=== PATIENT | female | born 1960 | race Caucasian/White ===

== ENCOUNTER 2022-05-04 11:11 | Emergency (ER) | payer MEDICARE, MEDICAID ==
[2022-05-04] MEDS ORDERED: Sodium Chloride 0.9% 10 ML Syringe FLUSH PRN ×2 (12:22→13:47)
[2022-05-04] MEDS ORDERED: Sodium Chloride 0.9% 1,000 ML IV ONE (12:22)
[2022-05-04] MEDS ORDERED: Iopamidol 612 MG/ML 100 ML Bottle IVPUSH ONE (13:47)
[2022-05-04] MEDS ORDERED: Ketorolac 30 MG/ML SDV IVPUSH ONE (14:35)
[2022-05-04 15:43] VITALS: BP 101/79; PULSE 86
[2022-05-04] MEDS ORDERED: Magnesium Citrate Solution 296 ML Bottle PO ONE (19:10)
== END 2022-05-04 19:42 | disposition home or self-care (01) ==
LOC: JD.ED 11:11
DX: K59.00 Constipation, unspecified (principal); J44.9 Chronic obstructive pulmonary disease, unspecified; E11.9 Type 2 diabetes mellitus without complications; E03.9 Hypothyroidism, unspecified; K21.9 Gastro-esophageal reflux disease without esophagitis; Z87.891 Personal history of nicotine dependence; Z88.1 Allergy status to other antibiotic agents; Z88.0 Allergy status to penicillin; Z79.899 Other long term (current) drug therapy
CPT/HCPCS: 36415; 74177; 80053; 81003; 83690; 83735; 85025; 86140; 96374; 99284; J1885; J3490; J7030; Q9967

== ENCOUNTER 2022-06-21 22:32 | Inpatient (IN) | payer MEDICARE, MEDICAID ==
[2022-06-21] MEDS ORDERED: Sodium Chloride 0.9% 1,000 ML ONE (23:47)
[2022-06-21] MEDS ORDERED: Sodium Chloride 0.9% 500 ML IV ONE (23:55)
[2022-06-21] MEDS ORDERED: Sodium Chloride 0.9% 10 ML Syringe FLUSH PRN (23:56)
[2022-06-22] MEDS ORDERED: Sodium Chloride 0.9% 1,000 ML IV ONE (00:45)
[2022-06-22] MEDS ORDERED: Piperacillin/Tazobactam 4.5 GM in Sodium Chloride 0.9% 100 ML IV STA (01:01)
[2022-06-22] MEDS ORDERED: Iopamidol 755 Mg/ML 100 ML Bottle IVPUSH ONE (01:55)
[2022-06-22] MEDS ORDERED: Sodium Chloride 0.9% 10 ML Syringe FLUSH ONE (01:55)
[2022-06-22] MEDS ORDERED: Sodium Chloride 0.9% 100 ML IV SCH (02:00)
[2022-06-22] MEDS ORDERED: REMDESIVIR 200 MG in Sodium Chloride 0.9% 250 ML IV ONE (02:12)
[2022-06-22] MEDS ORDERED: REMDESIVIR 100 MG ONE ×2 (02:59→03:01)
[2022-06-22] MEDS ORDERED: Sodium Chloride 0.9% 250 ML ONE (03:06)
[2022-06-22] MEDS ORDERED: Sodium Chloride 0.9% 1,000 ML IV SCH (03:45)
[2022-06-22] MEDS ORDERED: Albuterol/Ipratropium 3.0-0.5 MG/3 ML Neb Soln NEB PRN (12:20)
[2022-06-22] MEDS ORDERED: Ondansetron 4 MG/2 ML SDV IV PRN (12:20)
[2022-06-22] MEDS ORDERED: Albuterol 0.083% 2.5 MG/3 ML Neb Soln NEB PRN (12:20)
[2022-06-22] MEDS ORDERED: Docusate Sodium 100 MG Cap PO PRN (12:20)
[2022-06-22 13:39] LABS: HEMOGLOBIN A1C 6.3 %
[2022-06-22] MEDS: Gabapentin 600 MG Tab PO SCH ×2 (14:15→20:26)
[2022-06-22] MEDS: Levothyroxine 88 MCG Tab PO SCH (14:16)
[2022-06-22] MEDS: Gabapentin 100 MG Cap PO SCH ×2 (14:16→20:25)
[2022-06-22] MEDS: Oxybutynin 5 MG Tab PO SCH ×2 (14:16→20:26)
[2022-06-22] MEDS: Enoxaparin 40 MG/0.4 ML Syringe SUBCUT SCH (14:16)
[2022-06-22] MEDS: oxyCODONE 5 MG Tab PO PRN (14:17)
[2022-06-22] MEDS: Magnesium Oxide 400 MG Tab PO SCH (17:25)
[2022-06-22] MEDS ORDERED: Insulin Lispro 100 Unit/ML 3 ML KwikPen SUBCUT SCH (17:30)
[2022-06-22] MEDS: QUEtiapine 100 MG Tab PO SCH (20:24)
[2022-06-22] MEDS: cloZAPine 100 MG Tab PO SCH (20:24)
[2022-06-22] MEDS: Melatonin 3 MG Tab PO SCH (20:25)
[2022-06-22] MEDS: Famotidine 20 MG Tab PO SCH (20:25)
[2022-06-22] MEDS: Memantine 10 MG Tab PO SCH (20:25)
[2022-06-22] MEDS: Donepezil 10 MG Tab PO SCH (20:26)
[2022-06-22] MEDS: LITHIUM CARBONATE 150 MG PO SCH (20:53)
[2022-06-22] MEDS ORDERED: traZODone 50 MG Tab PO SCH (21:00)
[2022-06-23] MEDS: REMDESIVIR 100 MG in Sodium Chloride 0.9% 100 ML IV SCH (02:20)
[2022-06-23] MEDS: Pantoprazole 40 MG Tab.CR PO SCH (05:06)
[2022-06-23] MEDS: Levothyroxine 88 MCG Tab PO SCH (05:07)
[2022-06-23] MEDS: Donepezil 10 MG Tab PO SCH ×2 (08:52→21:00)
[2022-06-23] MEDS: Celecoxib 100 MG Cap PO SCH (08:52)
[2022-06-23] MEDS: Famotidine 20 MG Tab PO SCH (08:52)
[2022-06-23] MEDS: OLANZapine 5 MG Tab PO SCH (08:52)
[2022-06-23] MEDS: Cholecalciferol (Vitamin D3) 25 MCG Tab PO SCH (08:52)
[2022-06-23] MEDS: FLUoxetine 20 MG Cap PO SCH (08:52)
[2022-06-23] MEDS: Gabapentin 100 MG Cap PO SCH ×3 (08:52→21:01)
[2022-06-23] MEDS: Memantine 10 MG Tab PO SCH ×2 (08:53→21:01)
[2022-06-23] MEDS: Enoxaparin 40 MG/0.4 ML Syringe SUBCUT SCH (08:53)
[2022-06-23] MEDS: Gabapentin 600 MG Tab PO SCH (08:53)
[2022-06-23] MEDS: Polyethylene Glycol 3350 Powder 17 GM Packet PO SCH (08:53)
[2022-06-23] MEDS: Oxybutynin 5 MG Tab PO SCH ×3 (08:53→21:00)
[2022-06-23] MEDS: LITHIUM CARBONATE 150 MG PO SCH ×2 (09:09→23:35)
[2022-06-23] MEDS: LINACLOTIDE 290 MCG PO SCH (09:09)
[2022-06-23] MEDS: BUPROPION 75 MG PO SCH (09:10)
[2022-06-23] MEDS: Magnesium Oxide 400 MG Tab PO SCH ×2 (11:38→18:25)
[2022-06-23] MEDS ORDERED: REMDESIVIR 100 MG in Sodium Chloride 0.9% 100 ML IV SCH (12:30)
[2022-06-23] MEDS: Acetaminophen 325 MG Tab PO PRN ×2 (13:48→20:59)
[2022-06-23] MEDS: Benzocaine/Cetylpyridinium/Menthol Lozenge MUCMEM PRN ×2 (18:42→21:17)
[2022-06-23] MEDS: Melatonin 3 MG Tab PO SCH (20:59)
[2022-06-23] MEDS: cloZAPine 100 MG Tab PO SCH (20:59)
[2022-06-23] MEDS: QUEtiapine 100 MG Tab PO SCH (21:00)
[2022-06-24] MEDS: REMDESIVIR 100 MG in Sodium Chloride 0.9% 100 ML IV SCH (01:17)
[2022-06-24] MEDS: Levothyroxine 88 MCG Tab PO SCH (05:33)
[2022-06-24] MEDS: Pantoprazole 40 MG Tab.CR PO SCH (05:33)
[2022-06-24] MEDS: Celecoxib 100 MG Cap PO SCH (06:54)
[2022-06-24] MEDS: oxyCODONE 5 MG Tab PO PRN (07:51)
[2022-06-24] MEDS: LINACLOTIDE 290 MCG PO SCH (08:52)
[2022-06-24] MEDS: LITHIUM CARBONATE 150 MG PO SCH ×2 (08:53→21:01)
[2022-06-24] MEDS: BUPROPION 75 MG PO SCH (08:53)
[2022-06-24] MEDS: Polyethylene Glycol 3350 Powder 17 GM Packet PO SCH (08:54)
[2022-06-24] MEDS: Memantine 10 MG Tab PO SCH ×2 (08:56→20:46)
[2022-06-24] MEDS: FLUoxetine 20 MG Cap PO SCH (08:56)
[2022-06-24] MEDS: Donepezil 10 MG Tab PO SCH ×2 (08:56→20:47)
[2022-06-24] MEDS: Cholecalciferol (Vitamin D3) 25 MCG Tab PO SCH (08:58)
[2022-06-24] MEDS: Oxybutynin 5 MG Tab PO SCH ×3 (08:58→20:48)
[2022-06-24] MEDS: Gabapentin 100 MG Cap PO SCH ×3 (08:59→20:47)
[2022-06-24] MEDS: OLANZapine 5 MG Tab PO SCH (08:59)
[2022-06-24] MEDS: Enoxaparin 40 MG/0.4 ML Syringe SUBCUT SCH (09:00)
[2022-06-24] MEDS: guaiFENesin 600 MG Tab.ER PO SCH ×2 (11:55→20:47)
[2022-06-24] MEDS: Magnesium Oxide 400 MG Tab PO SCH ×2 (11:55→18:17)
[2022-06-24] MEDS: Acetaminophen 325 MG Tab PO PRN (14:06)
[2022-06-24] MEDS: Melatonin 3 MG Tab PO SCH (20:48)
[2022-06-24] MEDS: cloZAPine 100 MG Tab PO SCH (20:48)
[2022-06-24] MEDS: QUEtiapine 100 MG Tab PO SCH (20:48)
[2022-06-25] MEDS: REMDESIVIR 100 MG in Sodium Chloride 0.9% 100 ML IV SCH (02:13)
[2022-06-25] MEDS: Levothyroxine 88 MCG Tab PO SCH (06:03)
[2022-06-25] MEDS: Pantoprazole 40 MG Tab.CR PO SCH (06:03)
[2022-06-25] MEDS: Celecoxib 100 MG Cap PO SCH (06:07)
[2022-06-25] MEDS: Acetaminophen 325 MG Tab PO PRN ×2 (06:13→18:44)
[2022-06-25] MEDS: Donepezil 10 MG Tab PO SCH ×2 (09:32→20:22)
[2022-06-25] MEDS: FLUoxetine 20 MG Cap PO SCH (09:32)
[2022-06-25] MEDS: guaiFENesin 600 MG Tab.ER PO SCH ×2 (09:32→20:21)
[2022-06-25] MEDS: OLANZapine 5 MG Tab PO SCH (09:33)
[2022-06-25] MEDS: Memantine 10 MG Tab PO SCH ×2 (09:33→20:23)
[2022-06-25] MEDS: Cholecalciferol (Vitamin D3) 25 MCG Tab PO SCH (09:34)
[2022-06-25] MEDS: Enoxaparin 40 MG/0.4 ML Syringe SUBCUT SCH (09:34)
[2022-06-25] MEDS: Gabapentin 100 MG Cap PO SCH ×3 (09:34→20:54)
[2022-06-25] MEDS: Polyethylene Glycol 3350 Powder 17 GM Packet PO SCH (09:34)
[2022-06-25] MEDS: LITHIUM CARBONATE 150 MG PO SCH ×2 (09:35→22:32)
[2022-06-25] MEDS: Oxybutynin 5 MG Tab PO SCH ×3 (09:35→20:23)
[2022-06-25] MEDS: BUPROPION 75 MG PO SCH (09:35)
[2022-06-25] MEDS: LINACLOTIDE 290 MCG PO SCH (09:35)
[2022-06-25] MEDS: Magnesium Oxide 400 MG Tab PO SCH ×2 (12:19→17:25)
[2022-06-25] MEDS: oxyCODONE 5 MG Tab PO PRN (20:21)
[2022-06-25] MEDS: QUEtiapine 100 MG Tab PO SCH (20:22)
[2022-06-25] MEDS: cloZAPine 100 MG Tab PO SCH (20:23)
[2022-06-25] MEDS: Melatonin 3 MG Tab PO SCH (20:23)
[2022-06-26] MEDS: REMDESIVIR 100 MG in Sodium Chloride 0.9% 100 ML IV SCH (03:52)
[2022-06-26] MEDS: Acetaminophen 325 MG Tab PO PRN ×3 (04:08→18:44)
[2022-06-26] MEDS: Pantoprazole 40 MG Tab.CR PO SCH (06:57)
[2022-06-26] MEDS: Levothyroxine 88 MCG Tab PO SCH (06:57)
[2022-06-26] MEDS: Celecoxib 100 MG Cap PO SCH (06:58)
[2022-06-26] MEDS: LINACLOTIDE 290 MCG PO SCH (08:39)
[2022-06-26] MEDS: BUPROPION 75 MG PO SCH (08:40)
[2022-06-26] MEDS: LITHIUM CARBONATE 150 MG PO SCH ×2 (08:40→23:19)
[2022-06-26] MEDS: Polyethylene Glycol 3350 Powder 17 GM Packet PO SCH (08:41)
[2022-06-26] MEDS: guaiFENesin 600 MG Tab.ER PO SCH ×2 (08:42→20:14)
[2022-06-26] MEDS: Memantine 10 MG Tab PO SCH ×2 (08:42→20:15)
[2022-06-26] MEDS: Enoxaparin 40 MG/0.4 ML Syringe SUBCUT SCH (08:44)
[2022-06-26] MEDS: Donepezil 10 MG Tab PO SCH ×2 (08:44→20:14)
[2022-06-26] MEDS: Gabapentin 100 MG Cap PO SCH ×3 (08:45→20:15)
[2022-06-26] MEDS: Oxybutynin 5 MG Tab PO SCH ×3 (08:45→20:15)
[2022-06-26] MEDS: Cholecalciferol (Vitamin D3) 25 MCG Tab PO SCH (08:45)
[2022-06-26] MEDS: FLUoxetine 20 MG Cap PO SCH (08:45)
[2022-06-26] MEDS: OLANZapine 5 MG Tab PO SCH (08:45)
[2022-06-26] MEDS: Benzocaine/Cetylpyridinium/Menthol Lozenge MUCMEM PRN ×2 (10:45→15:37)
[2022-06-26] MEDS: Magnesium Oxide 400 MG Tab PO SCH ×2 (10:45→18:09)
[2022-06-26] MEDS: cloZAPine 100 MG Tab PO SCH (20:13)
[2022-06-26] MEDS: Melatonin 3 MG Tab PO SCH (20:14)
[2022-06-26] MEDS: QUEtiapine 100 MG Tab PO SCH (20:14)
[2022-06-27] MEDS: Levothyroxine 88 MCG Tab PO SCH (05:52)
[2022-06-27] MEDS: Pantoprazole 40 MG Tab.CR PO SCH (05:52)
[2022-06-27] MEDS: Celecoxib 100 MG Cap PO SCH (07:53)
[2022-06-27] MEDS: Enoxaparin 40 MG/0.4 ML Syringe SUBCUT SCH (08:48)
[2022-06-27] MEDS: Donepezil 10 MG Tab PO SCH ×2 (08:49→20:41)
[2022-06-27] MEDS: Memantine 10 MG Tab PO SCH ×2 (08:50→20:45)
[2022-06-27] MEDS: Cholecalciferol (Vitamin D3) 25 MCG Tab PO SCH (08:51)
[2022-06-27] MEDS: Oxybutynin 5 MG Tab PO SCH ×3 (08:51→20:45)
[2022-06-27] MEDS: OLANZapine 5 MG Tab PO SCH (08:52)
[2022-06-27] MEDS: Gabapentin 100 MG Cap PO SCH ×3 (08:52→20:42)
[2022-06-27] MEDS: FLUoxetine 20 MG Cap PO SCH (08:52)
[2022-06-27] MEDS: guaiFENesin 600 MG Tab.ER PO SCH ×2 (08:52→20:42)
[2022-06-27] MEDS: Polyethylene Glycol 3350 Powder 17 GM Packet PO SCH (08:53)
[2022-06-27] MEDS: LITHIUM CARBONATE 150 MG PO SCH (09:00)
[2022-06-27] MEDS: BUPROPION 75 MG PO SCH (09:00)
[2022-06-27] MEDS: LINACLOTIDE 290 MCG PO SCH (09:02)
[2022-06-27] MEDS: Magnesium Oxide 400 MG Tab PO SCH ×2 (10:48→17:59)
[2022-06-27] MEDS: Acetaminophen 325 MG Tab PO PRN (15:34)
[2022-06-27] MEDS: Benzocaine/Cetylpyridinium/Menthol Lozenge MUCMEM PRN (15:35)
[2022-06-27] MEDS: oxyCODONE 5 MG Tab PO PRN (18:13)
[2022-06-27] MEDS: cloZAPine 100 MG Tab PO SCH (20:43)
[2022-06-27] MEDS: QUEtiapine 100 MG Tab PO SCH (20:44)
[2022-06-27] MEDS: Melatonin 3 MG Tab PO SCH (20:45)
[2022-06-28] MEDS: LITHIUM CARBONATE 150 MG PO SCH ×3 (02:42→20:10)
[2022-06-28] MEDS: oxyCODONE 5 MG Tab PO PRN ×3 (06:53→20:10)
[2022-06-28] MEDS: Celecoxib 100 MG Cap PO SCH (06:53)
[2022-06-28] MEDS: Pantoprazole 40 MG Tab.CR PO SCH (06:54)
[2022-06-28] MEDS: Levothyroxine 88 MCG Tab PO SCH (06:54)
[2022-06-28] MEDS: Polyethylene Glycol 3350 Powder 17 GM Packet PO SCH (09:44)
[2022-06-28] MEDS: LINACLOTIDE 290 MCG PO SCH (09:48)
[2022-06-28] MEDS: BUPROPION 75 MG PO SCH (09:49)
[2022-06-28] MEDS: Cholecalciferol (Vitamin D3) 25 MCG Tab PO SCH (09:50)
[2022-06-28] MEDS: Oxybutynin 5 MG Tab PO SCH ×3 (09:51→20:13)
[2022-06-28] MEDS: Donepezil 10 MG Tab PO SCH ×2 (09:51→20:15)
[2022-06-28] MEDS: FLUoxetine 20 MG Cap PO SCH (09:53)
[2022-06-28] MEDS: OLANZapine 5 MG Tab PO SCH (09:54)
[2022-06-28] MEDS: guaiFENesin 600 MG Tab.ER PO SCH ×2 (09:54→20:16)
[2022-06-28] MEDS: Memantine 10 MG Tab PO SCH ×2 (09:54→20:11)
[2022-06-28] MEDS: Gabapentin 100 MG Cap PO SCH ×3 (09:55→20:13)
[2022-06-28] MEDS: Enoxaparin 40 MG/0.4 ML Syringe SUBCUT SCH (09:57)
[2022-06-28] MEDS: Magnesium Oxide 400 MG Tab PO SCH ×2 (11:54→17:32)
[2022-06-28] MEDS: Acetaminophen 325 MG Tab PO PRN (17:46)
[2022-06-28] MEDS: cloZAPine 100 MG Tab PO SCH (20:11)
[2022-06-28] MEDS: QUEtiapine 100 MG Tab PO SCH (20:14)
[2022-06-28] MEDS: Melatonin 3 MG Tab PO SCH (20:15)
[2022-06-29] MEDS: oxyCODONE 5 MG Tab PO PRN ×3 (06:54→17:43)
[2022-06-29] MEDS: Pantoprazole 40 MG Tab.CR PO SCH (06:54)
[2022-06-29] MEDS: Levothyroxine 88 MCG Tab PO SCH (06:55)
[2022-06-29] MEDS: Oxybutynin 5 MG Tab PO SCH ×3 (08:16→20:14)
[2022-06-29] MEDS: Donepezil 10 MG Tab PO SCH ×2 (08:16→20:18)
[2022-06-29] MEDS: FLUoxetine 20 MG Cap PO SCH (08:16)
[2022-06-29] MEDS: guaiFENesin 600 MG Tab.ER PO SCH ×2 (08:16→20:17)
[2022-06-29] MEDS: Cholecalciferol (Vitamin D3) 25 MCG Tab PO SCH (08:16)
[2022-06-29] MEDS: Celecoxib 100 MG Cap PO SCH (08:16)
[2022-06-29] MEDS: Memantine 10 MG Tab PO SCH ×2 (08:17→20:13)
[2022-06-29] MEDS: Acetaminophen 325 MG Tab PO PRN (08:17)
[2022-06-29] MEDS: Gabapentin 100 MG Cap PO SCH ×3 (08:17→20:15)
[2022-06-29] MEDS: OLANZapine 5 MG Tab PO SCH (08:17)
[2022-06-29] MEDS: Enoxaparin 40 MG/0.4 ML Syringe SUBCUT SCH (08:18)
[2022-06-29] MEDS: Polyethylene Glycol 3350 Powder 17 GM Packet PO SCH (08:18)
[2022-06-29] MEDS: LINACLOTIDE 290 MCG PO SCH (08:22)
[2022-06-29] MEDS: BUPROPION 75 MG PO SCH (08:22)
[2022-06-29] MEDS: LITHIUM CARBONATE 150 MG PO SCH ×2 (08:22→20:20)
[2022-06-29] MEDS: Magnesium Oxide 400 MG Tab PO SCH ×2 (10:52→17:43)
[2022-06-29] MEDS: QUEtiapine 100 MG Tab PO SCH (20:14)
[2022-06-29] MEDS: cloZAPine 100 MG Tab PO SCH (20:15)
[2022-06-29] MEDS: Melatonin 3 MG Tab PO SCH (20:17)
[2022-06-30] MEDS: oxyCODONE 5 MG Tab PO PRN ×4 (03:46→21:26)
[2022-06-30] MEDS: Pantoprazole 40 MG Tab.CR PO SCH (06:45)
[2022-06-30] MEDS: Celecoxib 100 MG Cap PO SCH (06:46)
[2022-06-30] MEDS: Levothyroxine 88 MCG Tab PO SCH (06:46)
[2022-06-30] MEDS: Enoxaparin 40 MG/0.4 ML Syringe SUBCUT SCH (08:21)
[2022-06-30] MEDS: guaiFENesin 600 MG Tab.ER PO SCH ×2 (08:21→21:19)
[2022-06-30] MEDS: Memantine 10 MG Tab PO SCH ×2 (08:22→21:22)
[2022-06-30] MEDS: FLUoxetine 20 MG Cap PO SCH (08:22)
[2022-06-30] MEDS: Donepezil 10 MG Tab PO SCH ×2 (08:22→21:21)
[2022-06-30] MEDS: Oxybutynin 5 MG Tab PO SCH ×3 (08:23→21:22)
[2022-06-30] MEDS: Polyethylene Glycol 3350 Powder 17 GM Packet PO SCH (08:23)
[2022-06-30] MEDS: OLANZapine 5 MG Tab PO SCH (08:23)
[2022-06-30] MEDS: Gabapentin 100 MG Cap PO SCH ×3 (08:23→21:20)
[2022-06-30] MEDS: Cholecalciferol (Vitamin D3) 25 MCG Tab PO SCH (08:23)
[2022-06-30] MEDS: LINACLOTIDE 290 MCG PO SCH (08:44)
[2022-06-30] MEDS: BUPROPION 75 MG PO SCH (08:44)
[2022-06-30] MEDS: LITHIUM CARBONATE 150 MG PO SCH ×2 (08:44→21:23)
[2022-06-30] MEDS: Magnesium Oxide 400 MG Tab PO SCH ×2 (12:03→17:41)
[2022-06-30] MEDS: Acetaminophen 325 MG Tab PO PRN (12:04)
[2022-06-30] MEDS: cloZAPine 100 MG Tab PO SCH (21:20)
[2022-06-30] MEDS: Melatonin 3 MG Tab PO SCH (21:21)
[2022-06-30] MEDS: QUEtiapine 100 MG Tab PO SCH (21:22)
[2022-07-01] MEDS ORDERED: Magnesium Hydroxide 400 MG/5 ML Susp 30 ML Cup PO ONE (03:40)
[2022-07-01] MEDS: Celecoxib 100 MG Cap PO SCH (06:38)
[2022-07-01] MEDS: Pantoprazole 40 MG Tab.CR PO SCH (06:38)
[2022-07-01] MEDS: Levothyroxine 88 MCG Tab PO SCH (06:41)
[2022-07-01] MEDS: Cholecalciferol (Vitamin D3) 25 MCG Tab PO SCH (09:06)
[2022-07-01] MEDS: Oxybutynin 5 MG Tab PO SCH ×3 (09:06→19:43)
[2022-07-01] MEDS: Polyethylene Glycol 3350 Powder 17 GM Packet PO SCH (09:06)
[2022-07-01] MEDS: Gabapentin 100 MG Cap PO SCH ×3 (09:06→19:42)
[2022-07-01] MEDS: Memantine 10 MG Tab PO SCH ×2 (09:07→19:44)
[2022-07-01] MEDS: FLUoxetine 20 MG Cap PO SCH (09:07)
[2022-07-01] MEDS: guaiFENesin 600 MG Tab.ER PO SCH (09:07)
[2022-07-01] MEDS: Enoxaparin 40 MG/0.4 ML Syringe SUBCUT SCH (09:07)
[2022-07-01] MEDS: OLANZapine 5 MG Tab PO SCH (09:07)
[2022-07-01] MEDS: Donepezil 10 MG Tab PO SCH ×2 (09:07→19:43)
[2022-07-01] MEDS: LINACLOTIDE 290 MCG PO SCH (09:08)
[2022-07-01] MEDS: BUPROPION 75 MG PO SCH (09:08)
[2022-07-01] MEDS: LITHIUM CARBONATE 150 MG PO SCH (09:09)
[2022-07-01] MEDS: Magnesium Oxide 400 MG Tab PO SCH ×2 (11:32→17:37)
[2022-07-01] MEDS: oxyCODONE 5 MG Tab PO PRN (11:32)
[2022-07-01] MEDS: cloZAPine 100 MG Tab PO SCH (19:41)
[2022-07-01] MEDS: Melatonin 3 MG Tab PO SCH (19:42)
[2022-07-01] MEDS: QUEtiapine 100 MG Tab PO SCH (19:44)
[2022-07-01] MEDS: Acetaminophen 325 MG Tab PO PRN (20:05)
[2022-07-02] MEDS: oxyCODONE 5 MG Tab PO PRN ×3 (05:40→13:53)
[2022-07-02] MEDS: Pantoprazole 40 MG Tab.CR PO SCH (05:44)
[2022-07-02] MEDS: Memantine 10 MG Tab PO SCH ×3 (08:01→20:23)
[2022-07-02] MEDS: cloZAPine 100 MG Tab PO SCH ×2 (08:01→20:21)
[2022-07-02] MEDS: Melatonin 3 MG Tab PO SCH ×2 (08:01→20:23)
[2022-07-02] MEDS: Donepezil 10 MG Tab PO SCH ×3 (08:01→20:23)
[2022-07-02] MEDS: Gabapentin 100 MG Cap PO SCH ×5 (08:02→20:24)
[2022-07-02] MEDS: QUEtiapine 100 MG Tab PO SCH ×2 (08:02→20:21)
[2022-07-02] MEDS: Oxybutynin 5 MG Tab PO SCH ×5 (08:02→20:23)
[2022-07-02] MEDS: LITHIUM CARBONATE 150 MG PO SCH ×3 (08:02→20:25)
[2022-07-02] MEDS: Levothyroxine 88 MCG Tab PO SCH (08:05)
[2022-07-02] MEDS: Cholecalciferol (Vitamin D3) 25 MCG Tab PO SCH (08:05)
[2022-07-02] MEDS: Celecoxib 100 MG Cap PO SCH (08:08)
[2022-07-02] MEDS: OLANZapine 5 MG Tab PO SCH (08:09)
[2022-07-02] MEDS: FLUoxetine 20 MG Cap PO SCH (08:09)
[2022-07-02] MEDS: LINACLOTIDE 290 MCG PO SCH (08:12)
[2022-07-02] MEDS: Polyethylene Glycol 3350 Powder 17 GM Packet PO SCH (08:13)
[2022-07-02] MEDS: Enoxaparin 40 MG/0.4 ML Syringe SUBCUT SCH (08:13)
[2022-07-02] MEDS: BUPROPION 75 MG PO SCH (08:13)
[2022-07-02] MEDS: Magnesium Oxide 400 MG Tab PO SCH ×2 (11:03→17:26)
[2022-07-02 22:04] VITALS: BP 102/58; PULSE 87
[2022-07-03] MEDS: Levothyroxine 88 MCG Tab PO SCH (06:13)
[2022-07-03] MEDS: Celecoxib 100 MG Cap PO SCH (06:13)
[2022-07-03] MEDS: Pantoprazole 40 MG Tab.CR PO SCH (06:13)
[2022-07-03] MEDS: Polyethylene Glycol 3350 Powder 17 GM Packet PO SCH (07:44)
[2022-07-03] MEDS: Cholecalciferol (Vitamin D3) 25 MCG Tab PO SCH (07:46)
[2022-07-03] MEDS: Memantine 10 MG Tab PO SCH (07:49)
[2022-07-03] MEDS: OLANZapine 5 MG Tab PO SCH (07:49)
[2022-07-03] MEDS: FLUoxetine 20 MG Cap PO SCH (07:49)
[2022-07-03] MEDS: Donepezil 10 MG Tab PO SCH (07:49)
[2022-07-03] MEDS: Gabapentin 100 MG Cap PO SCH (07:49)
[2022-07-03] MEDS: Oxybutynin 5 MG Tab PO SCH (07:49)
[2022-07-03] MEDS: Acetaminophen 325 MG Tab PO PRN (07:50)
[2022-07-03] MEDS: LITHIUM CARBONATE 150 MG PO SCH (07:51)
[2022-07-03] MEDS: BUPROPION 75 MG PO SCH (07:51)
[2022-07-03] MEDS: LINACLOTIDE 290 MCG PO SCH (07:52)
== END 2022-07-03 08:30 | DRG 177 ==
LOC: JD.ED 22:32 → JD.MS 06-22 09:23
PROVIDERS: ADMIT Pediatrics; ATTEND Pediatrics
PROC: XW033E5 Introduction of Remdesivir Anti-infective into Peripheral Vein, Percutaneous Approach, New Technology Group 5 (ICD-10-PCS; principal; 2022-06-22)
PROC: 8E0ZXY6 Isolation (ICD-10-PCS; principal; 2022-06-22)
DX: U07.1 COVID-19 (principal); J44.9 Chronic obstructive pulmonary disease, unspecified; J12.82 Pneumonia due to coronavirus disease 2019; J44.0 Chronic obstructive pulmonary disease with (acute) lower respiratory infection; E87.3 Alkalosis; E53.1 Pyridoxine deficiency; K21.9 Gastro-esophageal reflux disease without esophagitis; K58.9 Irritable bowel syndrome, unspecified; F31.9 Bipolar disorder, unspecified; F43.10 Post-traumatic stress disorder, unspecified; G25.81 Restless legs syndrome; M81.0 Age-related osteoporosis without current pathological fracture; F41.9 Anxiety disorder, unspecified; E03.9 Hypothyroidism, unspecified; G62.9 Polyneuropathy, unspecified; F25.9 Schizoaffective disorder, unspecified; E88.09 Other disorders of plasma-protein metabolism, not elsewhere classified; R53.83 Other fatigue; D70.3 Neutropenia due to infection; E11.42 Type 2 diabetes mellitus with diabetic polyneuropathy; Z96.659 Presence of unspecified artificial knee joint; H54.7 Unspecified visual loss; Z86.19 Personal history of other infectious and parasitic diseases; Z79.890 Hormone replacement therapy; Z79.899 Other long term (current) drug therapy; Z86.718 Personal history of other venous thrombosis and embolism; Z87.898 Personal history of other specified conditions; Z88.1 Allergy status to other antibiotic agents; Z88.0 Allergy status to penicillin; Z88.8 Allergy status to other drugs, medicaments and biological substances
CPT/HCPCS: 36415; 36600; 71045; 71275; 80053; 81003; 82803; 82947; 83036; 83605; 83735; 83880; 84145; 84484; 85007; 85027; 85379; 85610; 85730; 86140; 87040 ×2; 93005; 96361; 96365; 96367; 99285; J2543; J3490; J7030 ×3; J7050; Q9967; U0002; 80048; 85025; 87641; 92610-GN; 94667; 94668; 94760; 94761; 97110-GO; 97110-GP; 97162-GP; 97166-GO; 97530-GO; 97530-GP; 99223; 99232; 99233; 99239; 99284; A9270-GY; J1650